=== PATIENT | male | born 1960 | race Caucasian/White ===

== ENCOUNTER 2018-06-29 23:18 | Emergency (ER) | payer MEDICARE ==
[2018-06-30] MEDS ORDERED: KETOROLAC 30 MG/ML 1 ML VIAL IVP STA (00:43)
--- NOTE | 2018-06-30 01:21 | XR ---
EXAMINATION TYPE: XR elbow complete RT DATE OF EXAM: 06/30/2018 COMPARISON: NONE HISTORY: Elbow pain TECHNIQUE: 4 views FINDINGS: I see no fracture nor dislocation. There is elbow joint effusion. Joint spaces are normal. There is small spur on the olecranon process. IMPRESSION: Elbow joint effusion. No fracture seen.
[2018-06-30 01:45] LABS: Basophils % (A) 1 %; Eosinophils # (A) 0.2 k/uL (0-0.7); Eosinophils % (A) 3 %; HCT 43.5 % (39.0-53.0); Lymphocytes # (A) 2.6 k/uL (1.0-4.8); Lymphocytes % (A) 32 %; MCH 28.3 pg (25.0-35.0); MCHC 32.2 g/dL (31.0-37.0); Mean Platelet Volume 6.1; Monocytes # (A) 0.5 k/uL (0-1.0); Monocytes % (A) 6 %; Neutrophils # (A) 4.6 k/uL (1.3-7.7); Neutrophils % (A) 58 %; Platelet Count 316 k/uL (150-450); RBC 4.94 m/uL (4.30-5.90); WBC 7.9 k/uL (3.8-10.6)
[2018-06-30 01:55] LABS: ALT 44 U/L (21-72); AST 23 U/L (17-59); Albumin 4.5 g/dL (3.5-5.0); Alkaline Phosphatase 92 U/L (38-126); Anion Gap 14 mmol/L; Blood Urea Nitrogen 21 mg/dL (9-20); C Reactive Protein <5.0 mg/L (<10.0); Carbon Dioxide 24 mmol/L (22-30); Chloride 100 mmol/L (98-107); Glucose 272 mg/dL (74-99); Potassium 4.7 mmol/L (3.5-5.1); Sodium 138 mmol/L (137-145); Total Bilirubin 0.3 mg/dL (0.2-1.3); Total Protein 7.2 g/dL (6.3-8.2)
[2018-06-30 02:31] LABS: Erythrocyte Sedimentation Rate 3 mm/hr (0-15)
--- NOTE | 2018-06-30 03:46 | US ---
EXAMINATION TYPE: US venous doppler duplex UE RT DATE OF EXAM: 06/30/2018 COMPARISON: NONE CLINICAL HISTORY: Pain. on thinners, pain at rt elbow, no prev dvt SIDE PERFORMED: right Right Arm: neg for RUE dvt IMPRESSION: No sign of deep venous thrombosis in the right arm. There is patency of the subclavian axillary and b rachial veins.
[2018-06-30] MEDS ORDERED: ACET/COD 300 MG/30 MG STARTER PACK 6 TAB BTL PO STA (03:54)
--- NOTE | 2018-06-30 03:54 | ED ---
Upper Extremity HPI - General Chief Complaint: Extremity Injury, Upper Stated Complaint: Arm swelling Time Seen by Provider: 06/29/18 23:57 Source: patient Mode of arrival: ambulatory Limitations: no limitations - History of Present Illness Initial Comments: 58-year-old male patient presents the emergency department today for evaluation of right arm pain. Patient believes the pain is stemming from his elbow. Patient states never he tries to bend the elbow he has significant pain that shoots both up to her shoulder and down to his wrist. Patient denies any swelling to the elbow but states he is having swelling in his hand and does feel that the elbow was slightly warmer than the other. Patient denies any fevers or chills. Denies any injury to the elbow. Denies any numbness or tingling to the arm. Denies any neck pain. Patient denies any recent rash, shortness breath, chest pain, abdominal pain, nausea, vomiting, diarrhea, constipation, back pain, numbness, tingling, dizziness, weakness, hematuria, dysuria, urinary urgency, urinary frequency, headache, visual changes, or any other complaints. - Related Data Previous Rx's Medication Instructions Recorded Ibuprofen [Motrin] 600 mg PO Q8HR PRN #30 tab 06/30/18 Allergies Allergy/AdvReac Type Severity Reaction Status Date / Time No Known Allergies Allergy Verified 06/29/18 23:24 Review of Systems ROS Statement: Those systems with pertinent positive or pertinent negative responses have been documented in the HPI. ROS Other: All systems not noted in ROS Statement are negative. Past Medical History Past Medical History: Diabetes Mellitus, Hypertension History of Any Multi-Drug Resistant Organisms: None Reported Past Surgical History: Appendectomy, Back Surgery, Tonsillectomy Additional Past Surgical History / Comment(s): lt wrist Past Psychological History: No Psychological Hx Reported Smoking Status: Never smoker Past Alcohol Use History: None Reported Past Drug Use History: None Reported General Exam Limitations: no limitations General appearance: alert, in no apparent distress, other (This is a well- developed, well-nourished adult male patient in no acute distress. Vital signs upon presentation are temperature 97.8F, pulse 77, respirations 20, blood pressure 189/96, pulse ox 98% on room air.) Eye exam: Present: normal appearance, PERRL, EOMI. Absent: scleral icterus, conjunctival injection, periorbital swelling Respiratory exam: Present: normal lung sounds bilaterally. Absent: respiratory distress, wheezes, rales, rhonchi, stridor Cardiovascular Exam: Present: regular rate, normal rhythm, normal heart sounds. Absent: systolic murmur, diastolic murmur, rubs, gallop, clicks Extremities exam: Present: normal inspection, normal capillary refill, other ( Skin to the right upper extremities pink, warm, and dry. Cap refills less than 3 seconds. Radial pulses 2+ and equal bilaterally. Patient does have some mild nonpitting edema to the right hand. Patient has no tendon or muscular tenderness. Patient does have some tenderness over the dorsal aspect of the elbow. There is no evidence of swelling around the elbow or erythema. Right elbow may be slightly warmer than the left.). Absent: full ROM (Limited range of motion to the right elbow due to increased pain with movement.), tenderness, pedal edema, joint swelling, calf tenderness Neurological exam: Present: alert, oriented X3, CN II-XII intact Psychiatric exam: Present: normal affect, normal mood Skin exam: Present: warm, dry, intact, normal color. Absent: rash Course Vital Signs 06/29/18 23:21 Temperature 97.8 F Pulse Rate 77 Respiratory 20 Rate Blood Pressure 199/96 O2 Sat by Pulse 98 Oximetry Medical Decision Making - Medical Decision Making 58-year-old male patient presents the emergency department today for evaluation of increased right elbow pain that radiates both up to his shoulder and down to his hand. Physical examination did reveal some mild hand swelling, no elbow swelling, no erythema. Skin may have been slightly warmer than the left but nothing significant. Neurovascular status was intact. X-ray was obtained and did show a right elbow joint effusion. Ultrasound was negative for DVT. Labs reviewed and white blood cell count, ESR, and CRP were normal. Patient was given ibuprofen for pain control. Given a starter pack of Tylenol 3. He is instructed to follow-up with orthopedics for further evaluation tomorrow. Patient states he does live in [place] but preferred to wait until he goes home. Did give him follow-up with making just in case. He is instructed to return here immediately for any new, worsening, or concerning symptoms. He verbalizes understanding and agrees with this plan. - Lab Data Result diagrams: 06/30/18 01:23 06/30/18 01:23 Lab Results 06/30/18 06/30/18 Range/Units 01:23 01:23 WBC 7.9 (3.8-10.6) k/uL RBC 4.94 (4.30-5.90) m/uL Hgb 14.0 (13.0-17.5) gm/dL Hct 43.5 (39.0-53.0) % MCV 88.0 (80.0-100.0) fL MCH 28.3 (25.0-35.0) pg MCHC 32.2 (31.0-37.0) g/dL RDW 14.0 (11.5-15.5) % Plt Count 316 (150-450) k/uL Neutrophils % 58 % Lymphocytes % 32 % Monocytes % 6 % Eosinophils % 3 % Basophils % 1 % Neutrophils # 4.6 (1.3-7.7) k/uL Lymphocytes # 2.6 (1.0-4.8) k/uL Monocytes # 0.5 (0-1.0) k/uL Eosinophils # 0.2 (0-0.7) k/uL Basophils # 0.0 (0-0.2) k/uL ESR 3 (0-15) mm/hr Sodium 138 (137-145) mmol/L Potassium 4.7 (3.5-5.1) mmol/L Chloride 100 (98-107) mmol/L Carbon Dioxide 24 (22-30) mmol/L Anion Gap 14 mmol/L BUN 21 H (9-20) mg/dL Creatinine 1.10 (0.66-1.25) mg/dL Est GFR (CKD-EPI)AfAm 86 (>60 ml/min/1.73 sqM) Est GFR (CKD-EPI)NonAf 74 (>60 ml/min/1.73 sqM) Glucose 272 H (74-99) mg/dL Calcium 10.0 (8.4-10.2) mg/dL Total Bilirubin 0.3 (0.2-1.3) mg/dL AST 23 (17-59) U/L ALT 44 (21-72) U/L Alkaline Phosphatase 92 (38-126) U/L C-Reactive Protein <5.0 (<10.0) mg/L Total Protein 7.2 (6.3-8.2) g/dL Albumin 4.5 (3.5-5.0) g/dL - Radiology Data Radiology results: report reviewed, image reviewed Venous Doppler duplex of the right upper extremities was obtained. Report was reviewed in its entirety. Impression by Dr. Hinojosa shows no sign of deep venous thrombosis in the right arm. There is patency the subclavian axillary and brachial veins. Right elbow x-ray was obtained. There is no fracture nor dislocation. There is upper joint effusion. Joint spaces are normal. There is small spur on the olecranon process. Impression by Dr. Hinojosa shows up with joint effusion. No fracture seen. Disposition Clinical Impression: Effusion, right elbow Disposition: HOME SELF-CARE Condition: Good Instructions: Arthralgia (ED), Swollen Joint (ED) Additional Instructions: Take medication as directed. Follow-up with orthopedic physician for recheck as soon as possible. Return here immediately for any new, worsening, or concerning symptoms. Prescriptions: Ibuprofen [Motrin] 600 mg PO Q8HR PRN #30 tab PRN Reason: Pain Is patient prescribed a controlled substance at d/c from ED?: No Referrals: None,Stated [Primary Care Provider] - 1-2 days Sandeep Dennison MD [STAFF PHYSICIAN] - 1-2 days Time of Disposition: 03:54
[2018-06-30 05:43] VITALS: BP 182/89; PULSE 75; RESP 18; TEMP 98.1
== END 2018-06-30 04:55 | disposition home or self-care (01) ==
LOC: EC 23:18
DX: M25.421 Effusion, right elbow (principal)
CPT/HCPCS: 36415; 80053; 85652; 85025; 86140; 87040; 73080; 93971; 99284; 96374; J1885